=== PATIENT | female | born 1965 | race Caucasian/White ===

== ENCOUNTER 2020-08-14 09:09 | Emergency (ER) | payer BC, MEDICAID, OTHER, SELFPAY ==
[~2020-08-14] VITALS: Ht 154.9 cm; Wt 101.6 kg
[2020-08-14] MEDS ORDERED: NIFE15CA PO (09:36)
[2020-08-14] MEDS ORDERED: METO50TA7 PO ×2 (09:36→13:21)
[2020-08-14] MEDS ORDERED: LEVO50TA5 PO ×2 (09:36→13:21)
[2020-08-14] MEDS ORDERED: CYMB60CA3 PO (09:36)
[2020-08-14 11:29] VITALS: BP 183/85
[2020-08-14] MEDS ORDERED: METOPROLOL TART 50 MG TAB PO ONE (11:30)
[2020-08-14 11:47] LABS: BASO # 0.1 10^3/uL (0.0-0.2); BASO % 1.1 % (0.0-1.0); EOS # 0.2 10^3/uL (0.0-0.5); EOS % 2.9 % (0.0-3.0); HEMATOCRIT 49.2 % (36.0-47.0); HEMOGLOBIN 15.7 g/dl (12.0-15.5); LYMPH # 2.2 10^3/uL (1.5-5.0); LYMPH % 33.5 % (24.0-44.0); MEAN CORPUSCULAR HEMOGLOBIN 28.7 pg (27.0-33.0); MEAN CORPUSCULAR HGB CONC 31.9 g/dl (32.0-36.5); MEAN CORPUSCULAR VOLUME 89.9 fl (80.0-96.0); MONO # 0.7 10^3/uL (0.0-0.8); MONO % 10.4 % (0.0-5.0); NEUTROPHILS # 3.4 10^3/uL (1.5-8.5); NEUTROPHILS % 51.6 % (36.0-66.0); PLATELET COUNT, AUTOMATED 253 10^3/uL (150-450); RED BLOOD COUNT 5.47 10^6/uL (4.00-5.40); WHITE BLOOD COUNT 6.6 10^3/uL (4.0-10.0)
[2020-08-14 12:19] LABS: BLOOD UREA NITROGEN 18 MG/DL (7-18); CALCIUM LEVEL 9.2 MG/DL (8.5-10.1); CARBON DIOXIDE LEVEL 28 MEQ/L (21-32); CHLORIDE LEVEL 107 MEQ/L (98-107); CREATININE FOR GFR 0.64 MG/DL (0.55-1.30); FREE T4 0.97 NG/DL (0.76-1.46); GLOMERULAR FILTRATION RATE > 60.0 (>51); GLUCOSE, FASTING 105 MG/DL (70-100); POTASSIUM SERUM 4.1 MEQ/L (3.5-5.1); SODIUM LEVEL 139 MEQ/L (136-145)
[2020-08-14 14:02] VITALS: BP 142/88
== END 2020-08-14 14:04 | disposition home or self-care (01) ==
LOC: M ED 09:09
DX: Z76.0 Encounter for issue of repeat prescription (principal); E03.9 Hypothyroidism, unspecified; I10 Essential (primary) hypertension; J45.909 Unspecified asthma, uncomplicated; M19.90 Unspecified osteoarthritis, unspecified site; Z98.84 Bariatric surgery status; F17.200 Nicotine dependence, unspecified, uncomplicated; Z79.899 Other long term (current) drug therapy; Z88.8 Allergy status to other drugs, medicaments and biological substances

== ENCOUNTER → 2020-10-03 | Outpatient (REF) | payer MEDICAID ==
[~2020-10-03] MED LIST: CYMB60CA3 PO; LEVO50TA5 PO; METO50TA7 PO; NIFE15CA PO
[2020-10-03 12:26] LABS: CHOLESTEROL LEVEL 252 MG/DL (<200); CHOLESTEROL RISK RATIO 4.666 (<5); HDL CHOLESTEROL 54 MG/DL (>40); IRON (FE) 86 UG/DL (50-170); LDL CHOLESTEROL 163 MG/DL (<100); NON-HDL-C 198 MG/DL; TRIGLYCERIDES LEVEL 176 MG/DL (<150)
[2020-10-03 12:27] LABS: VITAMIN B12 LEVEL 554 PG/ML (247-911)
[2020-10-03 12:28] LABS: FOLATE > 24.0 NG/ML (>5.4)
[2020-10-03 13:40] LABS: HEMOGLOBIN A1c 5.6 %
== END ==
LOC: M SFHCPLAZ 10:36
PROVIDERS: ATTEND Family Medicine
DX: Z71.89 Other specified counseling (principal); Z76.89 Persons encountering health services in other specified circumstances; Z13.1 Encounter for screening for diabetes mellitus

== ENCOUNTER → 2020-10-27 | Outpatient (CLI) | payer OTHER ==
--- NOTE | 2020-10-28 09:41 | REPMRS ---
Patient History The patient states she has not had a clinical breast exam in over a year. Patient is postmenopausal. Family history of colorectal cancer at age 79 in father. Benign excisional biopsy of the left breast, 1993. Took hormonal contraceptives for 1 year. Digital Woman Screen Mammo: October 27, 2020 - Exam #: [id number] Bilateral CC and MLO view(s) were taken. Technologist: Alyssia Larkin, Technologist Prior study comparison: April 02, 2014, bilateral bilat screen digital mammo, performed at [facility] ([facility]). November 16, 2012, bilateral bilat screen digital mammo, performed at [facility] ([facility]). October 18, 2006, bilateral screening mammogram, performed at [facility] ([facility]). FINDINGS: The breast tissue is almost entirely fat. The Volpara volumetric breast density category is: A. There has been no change in the appearance of the mammogram from the prior studies. There is no interval development of dominant mass, architectural distortion, or grouped microcalcification typical of malignancy. 3-D tomosynthesis shows no additional findings. Assessment: BI-RADS/ACR category 1 mammogram. Negative Mammogram. Recommendation Routine screening mammogram of both breasts in 1 year (for women over age 40). This patient's [facility] Lifetime Breast Cancer RIsk is estimated at 9.1 %. This mammogram was interpreted with the aid of an FDA-approved computer-aided dectection system. Electronically Signed By: Rashel Cardoza MD 10/27/20 [id number]
== END ==
LOC: M WHC 13:29
PROVIDERS: ATTEND Hospitalist
DX: Z12.31 Encounter for screening mammogram for malignant neoplasm of breast (principal); Z92.0 Personal history of contraception

== ENCOUNTER → 2020-12-16 | Outpatient (REF) ==
--- NOTE | 2020-12-17 07:31 | REPPI ---
INDICATION: DDD DISABILITY DIAGNOSIS DETERMINATION COMPARISON: None. TECHNIQUE: AP and frog-lateral views of the right hip FINDINGS: Generalized age-related changes include subtle increased sclerosis to the acetabulum with minimal joint space narrowing. No further overt osteoarthritic or significant degenerative changes are appreciated. No evidence for acute or healed injury. Surrounding soft tissues are normal. IMPRESSION: Mild generalized age-related changes. <Electronically signed by Adolph Caro > 12/17/20 0704
--- NOTE | 2020-12-17 07:44 | REPPI ---
INDICATION: DDD DISABILITY DIAGNOSIS DETERMINATION COMPARISON: None. TECHNIQUE: Single AP view of the pelvis. FINDINGS: Mild degenerative changes include increased sclerosis along the acetabular roofs with associated marginal spurring and joint space narrowing. Remainder of the pelvis/hips appears normal. Surrounding soft tissues are normal. IMPRESSION: Mild symmetric degenerative changes to the bilateral hips. <Electronically signed by Adolph Caro > 12/17/20 1404
== END ==
LOC: M PLAIMG 12:24
PROVIDERS: ATTEND Internal Medicine
DX: M24.151 Other articular cartilage disorders, right hip (principal); M16.0 Bilateral primary osteoarthritis of hip; M25.751 Osteophyte, right hip; M25.752 Osteophyte, left hip

== ENCOUNTER → 2021-01-28 | Outpatient (CLI) | payer OTHER, MEDICAID ==
--- NOTE | 2021-01-28 10:40 | REPPI ---
INDICATION: M54.5 LOW BACK PAIN. TECHNIQUE: Seven views with flexion and extension bending views FINDINGS: There is moderate disc space narrowing at L5-S1. Vertebral body height and alignment is within normal limits. Mild anterior lipping is seen at all lumbar levels. Flexion and extension bending views show no evidence of instability. There is no spondylolysis or spondylolisthesis. The pedicles are intact bilaterally. There is a slight levoconvex curve. Degenerative changes are seen involving the imaged portion of the thoracic spine. Mild to moderate degenerative facet joint changes seen bilaterally at L4-5 L5-S1. IMPRESSION: Chronic changes as described above. <Electronically signed by Roberth Valverde > 01/28/21 1037
== END ==
LOC: M PLAIMG 10:03
PROVIDERS: ATTEND Hospitalist
DX: M54.5 Low back pain (principal)

== ENCOUNTER → 2021-03-04 | Outpatient (CLI) | payer OTHER ==
--- NOTE | 2021-03-04 13:34 | REP ---
INDICATION: POST MENOPAUSAL BLEEDING. COMPARISON: 06/27/2007 TECHNIQUE: Transvesical and transvaginal imaging FINDINGS: The uterus measures 7.5 x 5.1 x 6.8 cm. The parenchymal echo pattern is heterogenous. The endometrial echo complex is heterogenous measuring 8 mm in its greatest thickness. The right ovary measures 2.3 x 1.1 x 1.5 cm and is within normal limits with an RI 0.69 Left ovary measures 2.4 x 1.1 x 1.5 cm and is within normal limits with an RI 0.55. IMPRESSION: Abnormal appearing but non thickened endometrial echo complex. Neoplastic change cannot be ruled out by this exam. Consider pre and post gadolinium enhanced pelvic MRI. <Electronically signed by Roberth Valverde > 03/04/21 1605
== END ==
LOC: M RAD 12:30
PROVIDERS: ATTEND Nurse Practitioner Family
DX: N95.0 Postmenopausal bleeding (principal); N93.9 Abnormal uterine and vaginal bleeding, unspecified; N92.6 Irregular menstruation, unspecified

== ENCOUNTER → 2021-04-30 | Outpatient (REF) | payer OTHER | LOC: M SFHCWAGY 18:58 | PROVIDERS: ATTEND Specialist | DX: N95.0 Postmenopausal bleeding (principal) ==

== ENCOUNTER → 2021-05-22 | Outpatient (CLI) | payer OTHER | LOC: M LABSMTC 09:23 | PROVIDERS: ATTEND Anesthesiology | DX: Z01.812 Encounter for preprocedural laboratory examination (principal); Z20.822 Contact with and (suspected) exposure to COVID-19 ==

== ENCOUNTER → 2021-09-14 | Outpatient (CLI) | payer OTHER ==
[~2021-09-14] MED LIST changes: +ATOR1TAB19; +BUSP15TA47; -CYMB60CA3 PO; +CYMB60CA4 PO
[2021-09-14 13:15] LABS: HEMATOCRIT 46.8 % (36.0-47.0); HEMOGLOBIN 15.2 g/dl (12.0-15.5); MEAN CORPUSCULAR HEMOGLOBIN 28.6 pg (27.0-33.0); MEAN CORPUSCULAR HGB CONC 32.5 g/dl (32.0-36.5); PLATELET COUNT, AUTOMATED 258 10^3/uL (150-450); RED BLOOD COUNT 5.32 10^6/uL (4.00-5.40); WHITE BLOOD COUNT 8.6 10^3/uL (4.0-10.0)
[2021-09-14 13:47] LABS: ALBUMIN 3.5 GM/DL (3.2-5.2); ALT/SGPT 37 U/L (12-78); BILIRUBIN,TOTAL 0.4 MG/DL (0.2-1.0); BLOOD UREA NITROGEN 17 MG/DL (7-18); CALCIUM LEVEL 9.3 MG/DL (8.5-10.1); CARBON DIOXIDE LEVEL 28 MEQ/L (21-32); CHLORIDE LEVEL 105 MEQ/L (98-107); CHOLESTEROL LEVEL 145 MG/DL (<200); FREE T4 0.97 NG/DL (0.76-1.46); GLOMERULAR FILTRATION RATE > 60.0 (>51); GLUCOSE, FASTING 101 MG/DL (70-100); HDL CHOLESTEROL 50 MG/DL (>40); LDL CHOLESTEROL 70 MG/DL (<100); NON-HDL-C 95 MG/DL; POTASSIUM SERUM 4.4 MEQ/L (3.5-5.1); SODIUM LEVEL 139 MEQ/L (136-145); TOTAL PROTEIN 6.7 GM/DL (6.4-8.2); TRIGLYCERIDES LEVEL 126 MG/DL (<150)
[2021-09-14 13:52] LABS: HEMOGLOBIN A1c 5.6 %
[2021-09-14 14:09] LABS: ERYTHROCYTE SEDIMENTATION RATE 6 mm/hr (0-30)
== END ==
LOC: M LAB 12:17
PROVIDERS: ATTEND Student in an Organized Health Care Education/Training Program
DX: G89.29 Other chronic pain (principal)

== ENCOUNTER → 2021-09-21 | Outpatient (CLI) | payer OTHER | LOC: M PLAIMG 14:12 | PROVIDERS: ATTEND Student in an Organized Health Care Education/Training Program | DX: M51.37 Other intervertebral disc degeneration, lumbosacral region (principal) ==

== ENCOUNTER → 2022-01-06 | Outpatient (CLI) | payer OTHER | LOC: M PAIN 09:00 | PROVIDERS: ATTEND Nurse Practitioner Family | DX: M79.10 Myalgia, unspecified site (principal); E03.9 Hypothyroidism, unspecified; D50.9 Iron deficiency anemia, unspecified; Z86.59 Personal history of other mental and behavioral disorders; Z98.84 Bariatric surgery status; Z87.891 Personal history of nicotine dependence; Z88.8 Allergy status to other drugs, medicaments and biological substances; E66.01 Morbid (severe) obesity due to excess calories; Z68.42 Body mass index [BMI] 45.0-49.9, adult; Z79.899 Other long term (current) drug therapy ==

== ENCOUNTER 2022-01-21 10:30 | Outpatient (RCR) | payer OTHER | END 2022-02-04 | LOC: M PT 10:30 | PROVIDERS: ATTEND Nurse Practitioner Family | DX: M79.10 Myalgia, unspecified site (principal) ==

== ENCOUNTER → 2022-06-09 | Outpatient (CLI) | payer OTHER | LOC: M LABSMTC 10:20 | PROVIDERS: ATTEND Anesthesiology | DX: Z01.812 Encounter for preprocedural laboratory examination (principal); Z20.822 Contact with and (suspected) exposure to COVID-19 ==

== ENCOUNTER 2022-06-14 12:05 | Day surgery (SDC) | payer OTHER ==
[~2022-06-14] VITALS: Ht 154.9 cm; Wt 119.0 kg
[2022-06-14 12:46] LABS: HEMATOCRIT 47.3 % (36.0-47.0); HEMOGLOBIN 15.5 g/dl (12.0-15.5); MEAN CORPUSCULAR HEMOGLOBIN 29.2 pg (27.0-33.0); MEAN CORPUSCULAR HGB CONC 32.8 g/dl (32.0-36.5); MEAN CORPUSCULAR VOLUME 89.1 fl (80.0-96.0); PLATELET COUNT, AUTOMATED 311 10^3/uL (150-450); RED BLOOD COUNT 5.31 10^6/uL (4.00-5.40); WHITE BLOOD COUNT 6.6 10^3/uL (4.0-10.0)
[2022-06-14] MEDS ORDERED: LR 1,000 ML IV SCH ×3 (13:00→16:05)
[2022-06-14] MEDS ORDERED: LIDOCAINE 2% 100MG/5ML SDV (FOR ANES.) As Ordered ONE (14:41)
[2022-06-14] MEDS ORDERED: propofoL 200 MG/20 ML VIAL As Ordered ONE (14:41)
[2022-06-14] MEDS ORDERED: fentaNYL 100 MCG/2 ML INJECTION As Ordered ONE (14:41)
[2022-06-14] MEDS ORDERED: MIDAZOLAM INJ 2MG/2ML VIAL (J2250 PER 1MG) As Ordered ONE (14:42)
[2022-06-14] MEDS ORDERED: dexameTHASONE 4 MG/ML 1ML VIAL (J1100 PER 1MG) As Ordered ONE (15:00)
[2022-06-14] MEDS ORDERED: KETOROLAC 60MG 2ML VIAL As Ordered ONE (15:00)
[2022-06-14] MEDS ORDERED: ONDANSETRON 4MG 2ML VIAL As Ordered ONE (15:00)
[2022-06-14] MEDS ORDERED: fentaNYL 100 MCG/2 ML INJECTION IV PRN (15:25)
[2022-06-14] MEDS ORDERED: oxyCODONE 5MG TAB PO PRN (15:25)
[2022-06-14] MEDS ORDERED: ONDANSETRON 4MG 2ML VIAL IV PRN (15:25)
[2022-06-14] MEDS ORDERED: HYDROMORPHONE HCL 0.5 MG/ 0.5 ML SYRINGE (J1170 PER 1) IV PRN (15:25)
[2022-06-14] MEDS ORDERED: ACETAMINOPHEN 1000MG 100ML IV BTL (OFIRMEV) (J0131 PER 10MG) IV ONE (15:35)
[2022-06-14] MEDS ORDERED: ACETAMINOPHEN 500 MG TAB PO ONE (16:10)
[2022-06-14 16:46] VITALS: BP 156/85
== END 2022-06-14 16:54 | disposition home or self-care (01) ==
LOC: M SDC 12:05
PROVIDERS: ATTEND Specialist
DX: N95.0 Postmenopausal bleeding (principal)
CPT/HCPCS: 36415; 58558; 85027; 88305; J0131; J1100; J1885; J2250; J2405; J3010

== ENCOUNTER → 2022-08-15 | Outpatient (CLI) | payer OTHER ==
[~2022-08-15] MED LIST changes: -ATOR1TAB19; +ATOR1TAB19 PO; -BUSP15TA47; +BUSP15TA47 PO; +CALC250T PO; +VITA100093 PO; +VITA500T41 PO; +VITMTA PO
== END ==
LOC: M LABSMTC 10:27
PROVIDERS: ATTEND Anesthesiology
DX: Z01.812 Encounter for preprocedural laboratory examination (principal); Z20.822 Contact with and (suspected) exposure to COVID-19

== ENCOUNTER 2022-08-20 10:01 | Day surgery (SDC) | payer OTHER ==
[~2022-08-20] VITALS: Ht 154.9 cm; Wt 117.8 kg
[~2022-08-20 10:01] MED LIST changes: +NS 1,000 ML IV ONE
[2022-08-20] MEDS ORDERED: LIDOCAINE 2% 100MG/5ML SDV (FOR ANES.) As Ordered ONE (11:10)
[2022-08-20] MEDS ORDERED: propofoL 200 MG/20 ML VIAL As Ordered ONE ×2 (11:10→11:17)
[2022-08-20 11:44] VITALS: BP 114/57
== END 2022-08-20 12:07 | disposition home or self-care (01) ==
LOC: M OPP 10:01
PROVIDERS: ATTEND Surgery
DX: Z12.11 Encounter for screening for malignant neoplasm of colon (principal); Z80.0 Family history of malignant neoplasm of digestive organs; K62.1 Rectal polyp; Q43.8 Other specified congenital malformations of intestine; Z79.02 Long term (current) use of antithrombotics/antiplatelets; Z79.890 Hormone replacement therapy; Z79.891 Long term (current) use of opiate analgesic; Z79.899 Other long term (current) drug therapy; Z88.5 Allergy status to narcotic agent; Z88.8 Allergy status to other drugs, medicaments and biological substances; I10 Essential (primary) hypertension; E78.00 Pure hypercholesterolemia, unspecified; E03.9 Hypothyroidism, unspecified; F32.9 Major depressive disorder, single episode, unspecified; F41.9 Anxiety disorder, unspecified; M79.7 Fibromyalgia; D64.9 Anemia, unspecified; Z86.73 Personal history of transient ischemic attack (TIA), and cerebral infarction without residual deficits; Z98.84 Bariatric surgery status

== ENCOUNTER → 2022-12-31 | Outpatient (CLI) | payer OTHER ==
[~2022-12-31] MED LIST changes: -NS 1,000 ML IV ONE; +OXYC1TAB23 PO
[2022-12-31 13:30] LABS: HEMATOCRIT 47.4 % (36.0-47.0); HEMOGLOBIN 15.4 g/dl (12.0-15.5); MEAN CORPUSCULAR HEMOGLOBIN 29.1 pg (27.0-33.0); MEAN CORPUSCULAR HGB CONC 32.5 g/dl (32.0-36.5); MEAN CORPUSCULAR VOLUME 89.6 fl (80.0-96.0); PLATELET COUNT, AUTOMATED 266 10^3/uL (150-450); RED BLOOD COUNT 5.29 10^6/uL (4.00-5.40); WHITE BLOOD COUNT 7.9 10^3/uL (4.0-10.0)
[2022-12-31 13:58] LABS: ALBUMIN 3.9 G/DL (3.2-5.2); ALKALINE PHOSPHATASE 92 U/L (46-116); ALT/SGPT 29 U/L (7.0-40); AST/SGOT 22 U/L (<34); BILIRUBIN,TOTAL 0.9 MG/DL (0.3-1.2); BLOOD UREA NITROGEN 20 MG/DL (9-23); CALCIUM LEVEL 9.2 MG/DL (8.5-10.1); CARBON DIOXIDE LEVEL 30 MMOL/L (20-31); CHLORIDE LEVEL 102 MMOL/L (98-107); CREATININE FOR GFR 0.63 MG/DL (0.55-1.30); GLOMERULAR FILTRATION RATE > 60.0 (>51); GLUCOSE, FASTING 93 MG/DL (60-100); IRON (FE) 96 UG/DL (50-170); PERCENT SATURATION 24.2 % (13.2-45.0); POTASSIUM SERUM 4.6 MMOL/L (3.5-5.1); SODIUM LEVEL 140 MMOL/L (136-145); TOTAL IRON BINDING CAPACITY 396 UG/DL (250-425); TOTAL PROTEIN 6.8 G/DL (5.7-8.2)
== END ==
LOC: M PLALAB 10:26
PROVIDERS: ATTEND Student in an Organized Health Care Education/Training Program
DX: Z01.818 Encounter for other preprocedural examination (principal); N95.0 Postmenopausal bleeding

== ENCOUNTER → 2022-12-31 | Outpatient (REF) | payer OTHER | LOC: M SFHCPLAZ 10:04 | PROVIDERS: ATTEND Family Medicine | DX: Z53.9 Procedure and treatment not carried out, unspecified reason (principal) ==

== ENCOUNTER 2023-01-05 06:06 | Observation (INO) | payer OTHER ==
[2023-01-05] VITALS (9 sets, daily range): BP systolic 105–139; BP diastolic 53–68
[~2023-01-05] VITALS: Ht 154.9 cm; Wt 125.0 kg
[~2023-01-05 06:06] MED LIST changes: -OXYC1TAB23 PO
[2023-01-05] MEDS ORDERED: LR 1,000 ML IV SCH ×5 (06:15→11:05)
[2023-01-05] MEDS ORDERED: ceFAZolin SOD 2 GM in IV 1 EA IV ONE (06:15)
[2023-01-05 06:39] LABS: HEMATOCRIT 44.3 % (36.0-47.0); HEMOGLOBIN 14.6 g/dl (12.0-15.5); MEAN CORPUSCULAR VOLUME 87.9 fl (80.0-96.0); PLATELET COUNT, AUTOMATED 275 10^3/uL (150-450); RED BLOOD COUNT 5.04 10^6/uL (4.00-5.40); WHITE BLOOD COUNT 7.9 10^3/uL (4.0-10.0)
[2023-01-05] MEDS ORDERED: BUPIVACAINE HCL 0.25% 10ML VIAL As Ordered ONE ×2 (07:13→08:00)
[2023-01-05] MEDS ORDERED: ROCURONIUM BROMIDE 50MG/5ML VIAL As Ordered ONE ×3 (07:18→09:28)
[2023-01-05] MEDS ORDERED: propofoL 200 MG/20 ML VIAL As Ordered ONE (07:18)
[2023-01-05] MEDS ORDERED: LIDOCAINE 2% 100MG/5ML SDV (FOR ANES.) As Ordered ONE (07:18)
[2023-01-05] MEDS ORDERED: fentaNYL 100 MCG/2 ML INJECTION As Ordered ONE (07:18)
[2023-01-05] MEDS ORDERED: MIDAZOLAM INJ 2MG/2ML VIAL As Ordered ONE (07:19)
[2023-01-05] MEDS ORDERED: METOCLOPRAMIDE INJ 10MG/2ML VIAL As Ordered ONE (08:11)
[2023-01-05] MEDS ORDERED: ONDANSETRON 4MG 2ML VIAL As Ordered ONE (08:11)
[2023-01-05] MEDS ORDERED: ACETAMINOPHEN 1000MG 100ML IV BAG As Ordered ONE (08:11)
[2023-01-05] MEDS ORDERED: KETOROLAC 60MG 2ML VIAL As Ordered ONE (08:11)
[2023-01-05] MEDS ORDERED: HYDROmorphone HCL 2MG/ML 1ML VIAL As Ordered ONE (08:12)
[2023-01-05] MEDS ORDERED: SUGAMMADEX SODIUM 500 MG/5 ML VIAL (BRIDION) As Ordered ONE ×2 (08:16→08:17)
[2023-01-05] MEDS ORDERED: ePHEDrine SULFATE 25 MG/5 ML(5MG/ML) SYRINGE As Ordered ONE (08:33)
[2023-01-05] MEDS ORDERED: PHENYLephrine 500MCG 5ML (100MCG/ML) SYRINGE As Ordered ONE (08:34)
[2023-01-05] MEDS ORDERED: HYDROMORPHONE HCL 0.5 MG/ 0.5 ML SYRINGE IV PRN (10:40)
[2023-01-05] MEDS ORDERED: fentaNYL 100 MCG/2 ML INJECTION IV PRN (10:40)
[2023-01-05] MEDS ORDERED: ONDANSETRON 4MG 2ML VIAL IV PRN ×2 (10:40→11:05)
[2023-01-05] MEDS ORDERED: oxyCODONE 5MG TAB PO PRN (10:40)
[2023-01-05] MEDS ORDERED: OXYC1TAB23 PO (11:03)
[2023-01-05] MEDS ORDERED: KETOROLAC 30 MG/ML 1ML VIAL IV PRN (11:05)
[2023-01-05] MEDS ORDERED: PERCOCET 5MG/325MG TAB PO PRN ×2 (11:05)
[2023-01-05] MEDS: DOCUSATE SODIUM 100MG CAPSULE PO SCH ×2 (13:36→20:05)
[2023-01-05] MEDS: busPIRone 5 MG TAB PO SCH (20:05)
[2023-01-06 02:00] VITALS: BP 166/79
[2023-01-06] MEDS ORDERED: LEVOTHYROXINE 50MCG TABLET (0.05MG) PO SCH (06:00)
[2023-01-06 07:01] VITALS: BP 147/65
[2023-01-06] MEDS: busPIRone 5 MG TAB PO SCH (08:54)
[2023-01-06] MEDS: DOCUSATE SODIUM 100MG CAPSULE PO SCH (08:54)
[2023-01-06 10:00] VITALS: BP 111/46
== END 2023-01-06 12:05 | disposition home or self-care (01) ==
LOC: M SDC 06:06 → M RR INP 06:07 → M MS5PR 12:45
PROVIDERS: ADMIT Specialist; ATTEND Specialist
DX: N80.03 Adenomyosis of the uterus (principal); N88.8 Other specified noninflammatory disorders of cervix uteri; I10 Essential (primary) hypertension; E78.5 Hyperlipidemia, unspecified; E03.9 Hypothyroidism, unspecified; D64.9 Anemia, unspecified; L40.9 Psoriasis, unspecified; F41.9 Anxiety disorder, unspecified; F32.A Depression, unspecified; J45.909 Unspecified asthma, uncomplicated; Z79.899 Other long term (current) drug therapy; Z88.8 Allergy status to other drugs, medicaments and biological substances; Z98.84 Bariatric surgery status; Z87.891 Personal history of nicotine dependence; Z86.73 Personal history of transient ischemic attack (TIA), and cerebral infarction without residual deficits
CPT/HCPCS: 36415; 58571; 85027; 86850; 86900; 86901; 88307; J0131; J0690; J1100; J1170; J1885; J2250; J2370; J2405; J2765; J3010; S0020; S2900

== ENCOUNTER → 2023-01-26 | Outpatient (CLI) | payer OTHER ==
[~2023-01-26] MED LIST changes: +OXYC1TAB23 PO
== END ==
LOC: M SLEEP HO 11:06
PROVIDERS: ATTEND Nurse Practitioner Adult Health
DX: G47.30 Sleep apnea, unspecified (principal)

== ENCOUNTER → 2023-05-11 | Outpatient (REF) | payer OTHER | LOC: M SFHCPLAZ 10:02 | PROVIDERS: ATTEND Student in an Organized Health Care Education/Training Program | DX: Z53.9 Procedure and treatment not carried out, unspecified reason (principal); Z98.84 Bariatric surgery status; Z68.41 Body mass index [BMI] 40.0-44.9, adult; E89.0 Postprocedural hypothyroidism ==

== ENCOUNTER → 2023-11-07 | Outpatient (CLI) | payer MEDICARE, OTHER ==
[2023-11-07 10:34] LABS: THYROID STIMULATING HORMONE 3.062 uIU/ML (0.55-4.78)
[2023-11-07 10:35] LABS: FREE T4 0.94 NG/DL (0.89-1.76); TOTAL 25(OH) VITAMIN D 38.8 NG/ML (20.0-100.0)
[2023-11-07 11:24] LABS: HEMOGLOBIN A1c 5.9 % (4.0-6.0)
== END ==
LOC: M LAB 09:21
PROVIDERS: ATTEND Student in an Organized Health Care Education/Training Program
DX: Z98.84 Bariatric surgery status (principal); E89.0 Postprocedural hypothyroidism; Z68.41 Body mass index [BMI] 40.0-44.9, adult; Z79.899 Other long term (current) drug therapy

== ENCOUNTER → 2023-11-18 | Outpatient (CLI) | payer MEDICARE, OTHER | LOC: M RAD 16:38 | PROVIDERS: ATTEND Student in an Organized Health Care Education/Training Program | DX: F17.210 Nicotine dependence, cigarettes, uncomplicated (principal) ==

== ENCOUNTER → 2024-01-31 | Outpatient (CLI) | payer MEDICARE | LOC: M RAD 13:25 | PROVIDERS: ATTEND Student in an Organized Health Care Education/Training Program | DX: Z12.2 Encounter for screening for malignant neoplasm of respiratory organs (principal); F17.210 Nicotine dependence, cigarettes, uncomplicated; J84.9 Interstitial pulmonary disease, unspecified; I70.0 Atherosclerosis of aorta; I25.10 Atherosclerotic heart disease of native coronary artery without angina pectoris ==

== ENCOUNTER → 2024-02-07 | Outpatient (CLI) | payer MEDICARE | LOC: M PLAIMG 12:43 | PROVIDERS: ATTEND Student in an Organized Health Care Education/Training Program | DX: M25.511 Pain in right shoulder (principal) ==

== ENCOUNTER → 2024-06-02 | Outpatient (REF) | payer MEDICARE | LOC: M SFHCPLAZ 18:30 | PROVIDERS: ATTEND Student in an Organized Health Care Education/Training Program | DX: Z00.00 Encounter for general adult medical examination without abnormal findings (principal); Z13.1 Encounter for screening for diabetes mellitus; E89.0 Postprocedural hypothyroidism; E78.5 Hyperlipidemia, unspecified; Z98.84 Bariatric surgery status; Z53.9 Procedure and treatment not carried out, unspecified reason ==

== ENCOUNTER → 2024-07-25 | Outpatient (CLI) | payer MEDICARE ==
[2024-07-25 11:33] LABS: BASO # 0.1 10^3/uL (0.0-0.2); BASO % 0.8 % (0.0-1.0); EOS # 0.2 10^3/uL (0.0-0.5); HEMATOCRIT 47.4 % (36.0-47.0); HEMOGLOBIN 15.5 g/dl (12.0-15.5); LYMPH # 2.1 10^3/uL (1.5-5.0); LYMPH % 33.8 % (24.0-44.0); MEAN CORPUSCULAR HEMOGLOBIN 28.9 pg (27.0-33.0); MEAN CORPUSCULAR HGB CONC 32.7 g/dl (32.0-36.5); MEAN CORPUSCULAR VOLUME 88.4 fl (80.0-96.0); MONO # 0.6 10^3/uL (0.0-0.8); NEUTROPHILS # 3.2 10^3/uL (1.5-8.5); NEUTROPHILS % 52.2 % (36.0-66.0); PLATELET COUNT, AUTOMATED 242 10^3/uL (150-450); RED BLOOD COUNT 5.36 10^6/uL (4.00-5.40); WHITE BLOOD COUNT 6.1 10^3/uL (4.0-10.0)
[2024-07-25 11:49] LABS: HEMOGLOBIN A1c 6.1 % (4.0-6.0)
[2024-07-25 12:03] LABS: ALBUMIN 3.5 G/DL (3.2-5.2); ALKALINE PHOSPHATASE 89 U/L (35-104); ALT/SGPT 30 U/L (7.0-40); AST/SGOT 20 U/L (<34); BILIRUBIN,TOTAL 0.7 MG/DL (0.3-1.2); BLOOD UREA NITROGEN 23 MG/DL (9-23); CALCIUM LEVEL 9.5 MG/DL (8.5-10.1); CARBON DIOXIDE LEVEL 27 MMOL/L (20-31); CHLORIDE LEVEL 107 MMOL/L (98-107); CHOLESTEROL LEVEL 194 MG/DL (<200); CREATININE FOR GFR 0.67 MG/DL (0.55-1.30); GLOMERULAR FILTRATION RATE > 60.0 (>51); GLUCOSE, FASTING 107 MG/DL (60-100); HDL CHOLESTEROL 48.5 MG/DL (>40); LDL CHOLESTEROL 114.1 MG/DL (<100); NON-HDL-C 145.5 MG/DL; POTASSIUM SERUM 4.2 MMOL/L (3.5-5.1); SODIUM LEVEL 142 MMOL/L (136-145); TOTAL PROTEIN 6.7 G/DL (5.7-8.2); TRIGLYCERIDES LEVEL 157 MG/DL (<150)
[2024-07-25 12:05] LABS: TOTAL 25(OH) VITAMIN D 43.4 NG/ML (20.0-100.0)
[2024-07-25 12:06] LABS: VITAMIN B12 LEVEL 527 PG/ML (211-911)
== END ==
LOC: M LAB 09:08
PROVIDERS: ATTEND Student in an Organized Health Care Education/Training Program
DX: Z00.00 Encounter for general adult medical examination without abnormal findings (principal); Z13.1 Encounter for screening for diabetes mellitus; E89.0 Postprocedural hypothyroidism; Z79.899 Other long term (current) drug therapy; E78.5 Hyperlipidemia, unspecified; Z98.84 Bariatric surgery status

== ENCOUNTER → 2024-07-25 | Outpatient (CLI) | payer MEDICARE, OTHER | LOC: M WHC 09:46 | PROVIDERS: ATTEND Student in an Organized Health Care Education/Training Program | DX: Z12.31 Encounter for screening mammogram for malignant neoplasm of breast (principal); R92.323 Mammographic fibroglandular density, bilateral breasts ==

== ENCOUNTER → 2024-09-13 | Outpatient (REF) | payer MEDICARE, OTHER | LOC: M LAB REF 12:38 | PROVIDERS: ATTEND Student in an Organized Health Care Education/Training Program | DX: R30.0 Dysuria (principal) ==

== ENCOUNTER → 2024-10-06 | Outpatient (CLI) | payer MEDICARE ==
[2024-10-06 11:45] LABS: HEMOGLOBIN A1c 5.8 % (4.0-6.0)
== END ==
LOC: M LAB 10:52
PROVIDERS: ATTEND Student in an Organized Health Care Education/Training Program
DX: R73.03 Prediabetes (principal)

== ENCOUNTER → 2024-10-11 | Outpatient (REF) | payer MEDICARE | LOC: M SFHCPLAZ 13:11 | PROVIDERS: ATTEND Family Medicine | DX: Z53.9 Procedure and treatment not carried out, unspecified reason (principal) ==

== ENCOUNTER → 2025-06-01 | Outpatient (CLI) | payer MEDICARE ==
[2025-06-01 09:36] LABS: BASO # 0.1 10^3/uL (0.0-0.2); BASO % 1.0 % (0.0-1.0); EOS # 0.1 10^3/uL (0.0-0.5); EOS % 2.0 % (0.0-3.0); LYMPH # 2.6 10^3/uL (1.5-5.0); LYMPH % 37.3 % (24.0-44.0); MONO # 0.6 10^3/uL (0.0-0.8); MONO % 9.2 % (2.0-8.0); NEUTROPHILS # 3.4 10^3/uL (1.5-8.5); NEUTROPHILS % 50.2 % (36.0-66.0); PLATELET COUNT, AUTOMATED 235 10^3/uL (150-450)
[2025-06-01 10:12] LABS: ALT/SGPT 43 U/L (7.0-40); AST/SGOT 27 U/L (<34); CALCIUM LEVEL 9.3 MG/DL (8.5-10.1); CARBON DIOXIDE LEVEL 29 MMOL/L (20-31); CHLORIDE LEVEL 104 MMOL/L (98-107); CHOLESTEROL LEVEL 152 MG/DL (<200); CHOLESTEROL RISK RATIO 3.28 (<5); CREATININE FOR GFR 0.72 MG/DL (0.55-1.30); GLOMERULAR FILTRATION RATE > 90.0 (>51); LDL CHOLESTEROL 81.7 MG/DL (<100); NON-HDL-C 105.7 MG/DL; POTASSIUM SERUM 4.0 MMOL/L (3.5-5.1); SODIUM LEVEL 143 MMOL/L (136-145); TRIGLYCERIDES LEVEL 120 MG/DL (<150)
== END ==
LOC: M LAB 08:26
PROVIDERS: ATTEND Student in an Organized Health Care Education/Training Program
DX: Z00.00 Encounter for general adult medical examination without abnormal findings (principal); E78.5 Hyperlipidemia, unspecified; I10 Essential (primary) hypertension; E03.9 Hypothyroidism, unspecified

== ENCOUNTER → 2025-06-28 | Outpatient (CLI) | payer MEDICARE | LOC: M RAD 15:02 | PROVIDERS: ATTEND Student in an Organized Health Care Education/Training Program | DX: F17.210 Nicotine dependence, cigarettes, uncomplicated (principal) ==

== ENCOUNTER → 2025-07-23 | Outpatient (CLI) | payer MEDICARE | LOC: M PLAIMG 13:58 | DX: M25.511 Pain in right shoulder (principal) ==